=== PATIENT | female | born 1955 | race Hispanic/Latino ===

== ENCOUNTER 2022-08-11 18:59 | Emergency (ER) | payer MEDICARE ==
[~2022-08-11] VITALS: Ht 152.4 cm; Wt 81.6 kg
[2022-08-11] MEDS ORDERED: FLONASE ALLERG9.9 ML INH (19:51)
[2022-08-11] MEDS ORDERED: CLARITIN10 MG PO (19:51)
[2022-08-11] MEDS ORDERED: CEFDINIR300 MG PO (19:51)
== END 2022-08-11 20:00 | disposition home or self-care (01) ==
LOC: ER 19:15
DX: H66.92 Otitis media, unspecified, left ear (principal); J06.9 Acute upper respiratory infection, unspecified; I10 Essential (primary) hypertension; E11.9 Type 2 diabetes mellitus without complications; E78.5 Hyperlipidemia, unspecified
CPT/HCPCS: 99282